=== PATIENT | female | born 1990 | race Two or more races ===

== ENCOUNTER 2020-04-01 13:48 | Observation (INO) | payer MEDICAID ==
[~2020-04-01] VITALS: Ht 172.7 cm; Wt 75.1 kg
--- NOTE | 2020-04-01 14:10 | NUR ---
PT HERE A FEW HOURS AGO FOR SAME ABD PAIN, DX WITH GALLSTONES. PT STATES "I CAME BACK BECAUSE OF THE PAIN"
[2020-04-01] MEDS ORDERED: ONDANSETRON 2MG/ML, 2ML ONE (14:15)
[2020-04-01] MEDS ORDERED: HYDROmorphone 1 MG/ML, 1ML INJ ONE (14:15)
[2020-04-01 14:29] LABS: BASOPHILS % (AUTO) 1 % (0-1); EOSINOPHILS % (AUTO) 1 % (1-7); LYMPHOCYTES % (AUTO) 34 % (22-44); MEAN CORPUSCULAR HEMOGLOBIN 31.6 pg (27.0-34.8); MEAN CORPUSCULAR HGB CONC 34.2 g/dL (32.4-35.8); MEAN PLATELET VOLUME 6.5 fL (7.4-10.4); MONOCYTES % (AUTO) 7 % (2-9); NEUTROPHILS % (AUTO) 57 % (42-75); PLATELET COUNT 337 x10^3/uL (130-400); RED BLOOD COUNT 4.57 x10^6/uL (3.82-5.3); RED CELL DISTRIBUTION WIDTH 13.3 % (9.6-15.2)
[2020-04-01] MEDS ORDERED: HYDROmorphone 2 MG/ML, 1ML IVPush PRN (14:30)
[2020-04-01] MEDS ORDERED: ONDANSETRON 2MG/ML, 2ML IVPush ONE (14:30)
[2020-04-01] MEDS ORDERED: SODIUM CHLORIDE FLUSH 10ML SYR IVF ONE (14:30)
[2020-04-01] MEDS ORDERED: SODIUM CHLORIDE 0.9% 1,000ML IVBOLUS ONE ×2 (14:30→16:00)
[2020-04-01 14:32] LABS: MD NO
--- NOTE | 2020-04-01 14:33 | NUR ---
PT REFUSES DILAUDED, D/T BEING ON PROBATION, GIVEN OTHER MEDS PER CHRISTY STOKES.
[2020-04-01 14:40] LABS: ANION GAP 2 mmol/L (5-15); CALCIUM 8.7 mg/dL (8.5-10.1); CHLORIDE 109 mmol/L (98-107)
[2020-04-01 14:47] LABS: ALANINE AMINOTRANSFERASE 22 U/L (12-78); ALKALINE PHOSPHATASE 67 U/L (45-117); BILIRUBIN,TOTAL 1.7 mg/dL (0.2-1.0); CREATININE 0.91 mg/dL (0.55-1.02); TOTAL PROTEIN 7.2 g/dL (6.4-8.2)
--- NOTE | 2020-04-01 15:22 | NUR ---
PT BP REMAINS LOW POST BOLUS ERP UPDATED. BP 81/48, PT ASYMPTOMATIC TO THIS, DENIES SOB/CP/DIZZINESS
--- NOTE | 2020-04-01 16:42 | NUR ---
PT RESTING ON GURNEY, BP IMPROVED 92//57 POST SECOND BOLUS. DENIES NEEDS AT THIS TIME, PT TO BE ADMITTED, UPDATED ON POC
[2020-04-01] MEDS ORDERED: FAMOTIDINE 20 MG/2 ML IVPush SCH (17:00)
[2020-04-01] MEDS ORDERED: KETOROLAC 30 MG/1 ML IV PRN (17:00)
[2020-04-01] MEDS ORDERED: ENALAPRILAT 1.25 MG/ML, 2ML IVPush PRN (17:00)
[2020-04-01] MEDS ORDERED: OXYcodone IR 5MG TABLET PO PRN (17:00)
[2020-04-01] MEDS ORDERED: ACETAMINOPHEN 325 MG TABLET PO PRN (17:00)
[2020-04-01] MEDS ORDERED: morphine SULFATE 10 MG/ML, 1ML IVPush PRN (17:00)
[2020-04-01] MEDS ORDERED: ONDANSETRON 2MG/ML, 2ML IVPush PRN (17:00)
[2020-04-01 17:02] LABS: GAMMA GLUTAMYL TRANSPEPTIDASE 9 U/L (5-55)
--- NOTE | 2020-04-01 17:13 | NUR ---
REQUEST FOR MEDS SENT TO PHARMACY
[2020-04-01] MEDS ORDERED: FAMOTIDINE 20 MG/2 ML ONE (18:32)
--- NOTE | 2020-04-01 18:51 | NUR ---
REPORT CALLED TO RECIEVING RN
[2020-04-01] MEDS: D5%-0.45NACL+KCL 20MEQ 1,000 ML IV SCH (19:37)
[2020-04-01 19:47] VITALS: BP 96/61
[2020-04-02 02:27] VITALS: BP 86/51
[2020-04-02 02:37] VITALS: BP 93/59
[2020-04-02] MEDS: D5%-0.45NACL+KCL 20MEQ 1,000 ML IV SCH ×2 (04:54→16:30)
[2020-04-02 06:08] LABS: BASOPHILS % (AUTO) 0 % (0-1); EOSINOPHILS % (AUTO) 2 % (1-7); LYMPHOCYTES % (AUTO) 50 % (22-44); MEAN CORPUSCULAR HEMOGLOBIN 31.6 pg (27.0-34.8); MEAN CORPUSCULAR HGB CONC 34.1 g/dL (32.4-35.8); MEAN PLATELET VOLUME 6.6 fL (7.4-10.4); MONOCYTES % (AUTO) 9 % (2-9); NEUTROPHILS % (AUTO) 40 % (42-75); PLATELET COUNT 268 x10^3/uL (130-400); RED BLOOD COUNT 4.19 x10^6/uL (3.82-5.3); RED CELL DISTRIBUTION WIDTH 13.2 % (9.6-15.2)
[2020-04-02 06:15] LABS: CHLORIDE 115 mmol/L (98-107)
[2020-04-02 06:21] LABS: ALANINE AMINOTRANSFERASE 16 U/L (12-78); ALBUMIN 3.1 g/dL (3.4-5.0); ALKALINE PHOSPHATASE 47 U/L (45-117); ANION GAP 3 mmol/L (5-15); BILIRUBIN,TOTAL 1.4 mg/dL (0.2-1.0); CREATININE 0.73 mg/dL (0.55-1.02); TOTAL PROTEIN 5.7 g/dL (6.4-8.2)
[2020-04-02 06:40] LABS: MD SCAN
[2020-04-02 07:47] VITALS: BP 95/58
[2020-04-02 14:16] VITALS: BP 90/57
[2020-04-02] MEDS ORDERED: URSO500T9 PO (15:31)
[2020-04-02] MEDS ORDERED: ACET500T64 PO (15:31)
[2020-04-02] MEDS ORDERED: NAPR250T6 PO (15:31)
== END 2020-04-02 17:54 | disposition home or self-care (01) ==
LOC: ED 14:08 → EDIP 16:07 → INTOOBSV 16:07 → SUATTDRO 16:16 → 3N 19:06
PROVIDERS: ADMIT Hospitalist; ATTEND Hospitalist
DX: K80.20 Calculus of gallbladder without cholecystitis without obstruction (principal); I95.9 Hypotension, unspecified; I10 Essential (primary) hypertension; Z79.899 Other long term (current) drug therapy
CPT/HCPCS: 36415; 74181; 80053; 82977; 83690; 84703; 85025; 96361; 96374; 96375; 99284; G0378; J1885; J2405; J3480; J7030

== ENCOUNTER → 2020-04-01 | Outpatient (CLI) | payer BC, MEDICAID ==
[~2020-04-01] MED LIST: ACET500T64 PO; NAPR250T6 PO; URSO500T9 PO
== END | disposition home or self-care (01) ==
LOC: RAD 08:37
PROVIDERS: ATTEND Nurse Practitioner Family
DX: K80.20 Calculus of gallbladder without cholecystitis without obstruction (principal); K83.8 Other specified diseases of biliary tract
CPT/HCPCS: 76705

== ENCOUNTER 2020-09-18 10:51 | Emergency (ER) | payer MEDICAID ==
[~2020-09-18] VITALS: Ht 170.2 cm; Wt 71.0 kg
[~2020-09-18 10:51] MED LIST changes: +NAPR-872 PO; -NAPR250T6 PO
[2020-09-18 11:02] VITALS: BP 115/68
--- NOTE | 2020-09-18 11:55 | NUR ---
Trevon sanders in [facility] - 09/18/20 at 1157 by [employer]: PT TO ROOM FROM LOBBY VIA WHEELCHAIR
--- NOTE | 2020-09-18 11:57 | NUR ---
HAY BALER: PT AMBULATORY TO ROOM FROM LOBBY
== END 2020-09-18 12:27 | disposition home or self-care (01) ==
LOC: ED 12:18
DX: J02.8 Acute pharyngitis due to other specified organisms (principal); B97.89 Other viral agents as the cause of diseases classified elsewhere; R51.9 Headache, unspecified; R09.81 Nasal congestion
CPT/HCPCS: 87081; 87880; 99283

== ENCOUNTER 2020-12-04 13:31 | Emergency (ER) | payer MEDICAID ==
[~2020-12-04] VITALS: Ht 172.7 cm; Wt 68.6 kg
--- NOTE | 2020-12-04 14:08 | NUR ---
DON x1 day, pt reports that she has been having DON intermittently x3 weeks, feeling sensitive to light and sound, no loss or change of vision. PT TO BED WITH STEADY GAIT. PROVIDED UA. ATTACHED TO MONITORS. VSS. RIBEIRO. POSTIONED TO COMFORT IN BED. AWAITING ORDERS.
--- NOTE | 2020-12-04 14:37 | NUR ---
DR. MADDOX TO BEDSIDE FOR EVALUATION.
[2020-12-04 15:15] LABS: BASOPHILS % (AUTO) 0 % (0-1); EOSINOPHILS % (AUTO) 2 % (1-7); LYMPHOCYTES % (AUTO) 40 % (22-44); MEAN CORPUSCULAR HEMOGLOBIN 32.3 pg (27.0-34.8); MEAN PLATELET VOLUME 6.4 fL (7.4-10.4); MONOCYTES % (AUTO) 8 % (2-9); NEUTROPHILS % (AUTO) 50 % (42-75); PLATELET COUNT 348 x10^3/uL (130-400); RED BLOOD COUNT 4.63 x10^6/uL (3.82-5.3); RED CELL DISTRIBUTION WIDTH 13.5 % (9.6-15.2)
[2020-12-04 15:28] LABS: ALBUMIN 3.6 g/dL (3.4-5.0); ANION GAP 7 mmol/L (5-15); CALCIUM 9.1 mg/dL (8.5-10.1); CHLORIDE 107 mmol/L (98-107); CREATININE 0.73 mg/dL (0.55-1.02)
--- NOTE | 2020-12-04 15:33 | NUR ---
Break RN note: Pt resting in bed with lights dimmed in room, NADN. Awaiting CT.
--- NOTE | 2020-12-04 15:55 | NUR ---
PT TO CT.
--- NOTE | 2020-12-04 16:25 | NUR ---
PT RESTING IN BED. BACK FROM CT. AWAITING READ.
[2020-12-04 17:56] VITALS: BP 101/67
--- NOTE | 2020-12-04 17:57 | NUR ---
Patient given discharge instructions and they have confirmed that they understand the instructions. Patient ambulatory with steady gait. NAD, all questions answered appropriately, denies additional needs at this time. No personal belongings left in room after discharge.
== END 2020-12-04 17:58 | disposition home or self-care (01) ==
LOC: ED 17:50
DX: G43.909 Migraine, unspecified, not intractable, without status migrainosus (principal); H53.149 Visual discomfort, unspecified
CPT/HCPCS: 36415; 70450; 80048; 82040; 84703; 85025; 99285